=== PATIENT | female | born 1980 | race Caucasian/White ===

== ENCOUNTER 2018-01-01 17:46 | Emergency (ER) | payer BC, OTHER, SELFPAY ==
[2018-01-01 17:50] VITALS: BP 129/92; PULSE 92; RESP 20; TEMP 36.1; O2SAT 98; BMI 28.3
--- NOTE | 2018-01-01 18:04 | ED.ARRPALP ---
HPI - Arrhythmia/Palpitations General Chief Complaint: Arrhythmia/Palpitations Stated Complaint: HEART PALPITATIONS SINCE LAST NIGHT,LOST CONCIOUSN Time Seen by Provider: 01/01/18 18:03 Source: patient Mode of arrival: ambulatory Limitations: no limitations History of Present Illness HPI narrative: 37-year-old otherwise healthy female here for evaluation of palpitations. Patient states that for several years (> 10) she has had palpitations. She states she has worn a Holter monitor for these in the past. She states that she was told that it was a ?arrhythmia? she states she does not take any medications for it. She states that she gets them no more than 1 time a month and sometimes even longer in between the episodes. She states that when she does get them it feels like that her heart is ?skipping beats ?and she feels it in the left side of her neck. Never has any chest pain, never has any shortness of breath, has never passed out. Patient states that yesterday afternoon she had her normal palpitations sensation however it lasted ?longer ?than what it normally does. She states she was driving at the time. She states that yesterday she did get lightheaded, tunnel vision and had the pull the car over. Unknown as to how long the situation lasted. She states that she does not feel that she completely lost consciousness. She denied any chest pain at that time. She was with her at the time. States that when the palpitations resolved all of her symptoms completely resolved. Has not had any of the symptoms today. Did not get evaluated yesterday. Did not come in today because she was at work. At the time my evaluation patient was symptom free. Related Data Previous Rx's Medication Instructions Recorded nitrofurantoin monohyd/m-cryst 100 mg PO Q12H #10 cap 04/28/16 [Macrobid] Review of Systems Constitutional Denies chills, Denies fever(s), Denies headache(s), Denies lethargy and Denies weakness ENT Ears, Nose, Mouth, and Throat: Denies vertigo, Denies dizziness, Denies headache(s) and Denies neck pain Cardiovascular Denies chest pain, Denies syncope, Reports rapid heart rate, Denies edema, Reports irregular heart rhythm, Denies leg edema, Reports lightheadedness, Reports palpitations, Denies dyspnea and Denies dyspnea on exertion Respiratory Denies cough, Denies dyspnea and Denies dyspnea on exertion Gastrointestinal Gastrointestinal: Denies diarrhea, Denies nausea and Denies vomiting Genitourinary Denies dysuria Musculoskeletal Denies abnormal gait, Denies joint swelling, Denies muscle cramps, Denies muscle weakness and Denies neck pain Integumentary/Breasts Denies rash, Denies sores, Denies wounds and Denies jaundice Neurologic Denies abnormal gait, Denies vertigo, Denies dizziness, Denies syncope, Denies headache(s) and Denies weakness Endocrine Reports palpitations Hematologic/Lymphatic Denies easy bruising [facility] Surgical History Status post delivery Social History Smoking Status: Never smoker Exam Initial Vital Signs Initial Vital Signs: Vital Signs Temperature 97.0 F L 01/01/18 17:50 Pulse Rate 92 H 01/01/18 17:50 Respiratory Rate 20 01/01/18 17:50 Blood Pressure 129/92 H 01/01/18 17:50 Pulse Oximetry 98 01/01/18 17:50 Const General: cooperative and well developed Nutritional Appearance: well nourished Orientation: alert, awake, oriented x3 and not confused Chest Chest: normal inspection of the chest Resp Effort & Inspection: normal respiratory effort, able to speak in complete sentences, no respiratory distress and no use of accessory muscles Auscultation: clear to auscultation bilaterally, no rales, no rhonchi and no wheezes Cardio Rate: regular rate Rhythm: regular rhythm Heart Sounds: no click, no gallops, no murmurs and no rubs Pulses: normal peripheral pulses GI Inspection: non-distended Palpation: soft, no hepatosplenomegaly, No guarding, No pulsatile mass and No tender Auscultation: normal bowel sounds Skin General: no rashes or lesions noted, No jaundice and No petechiae Neuro General: alert, awake and oriented x3 Extrem General: full ROM, no clubbing, cyanosis or edema, no pedal edema and no calf tenderness Course Orders Ordered: ED Orders 01/01/18 18:00 Basic Metabolic Panel Stat Complete Blood Count AUTO DIFF Stat Test Serum,Qual Stat 01/01/18 18:03 XR chest 2V Stat Vital Signs - 8 hr 01/01/18 17:50 01/01/18 18:37 Temperature 97.0 F L Pulse Rate 92 H 70 Respiratory Rate 20 Blood Pressure 129/92 H Blood Pressure [Left Arm] 111/80 Pulse Oximetry 98 97 MDM - Arrhythmia/Palpitations Lab Data Attestation: I reviewed the patient's lab results. Result diagrams: 01/01/18 18:00 01/01/18 18:00 Lab Results 01/01/18 01/01/18 01/01/18 Range/Units 18:00 18:00 18:00 WBC 6.4 (4.5-11.0) X10^3/uL RBC 4.22 (4.0-5.2) X10^6/uL Hgb 12.3 (12.0-16.0) g/dL Hct 36.5 (36-46) % MCV 86.4 (80-100) fL MCH 29.2 (26-34) PG MCHC 33.8 (30-36) % RDW 13.2 (11.6-14.8) % Plt Count 396 (150-400) X10^3/uL Neut % (Auto) 50.2 (50-75) % Lymph % (Auto) 34.4 (25-40) % Woodruff % (Auto) 12.9 (3-14) % Eos % (Auto) 2.0 (2-4) % Baso % (Auto) 0.5 (0-2) % Neut # (Auto) 3200 (9023-9381) /uL Sodium 139 (137-145) mmol/L Potassium 3.8 (3.4-5.1) mmol/L Chloride 101 (98-107) mmol/L Carbon Dioxide 25 (22-32) mmol/L BUN 14 (7-17) mg/dL Creatinine 0.60 (0.52-1.04) mg/dL Estimated GFR > 60.0 (>60) mL/min BUN/Creatinine Ratio 23.3 H (6-22) Glucose 89 (70-100) mg/dL Calcium 9.0 (8.4-10.2) mg/dL Serum , Qual Negative (Negative) Imaging Data Chest x-ray: Radiologist's impression: PROCEDURE: XR CHEST 2V INDICATIONS: 37 year-old female with palpitations. TECHNIQUE: 2 views of the chest were acquired. COMPARISON: None. FINDINGS: Surgical changes and devices: None. Lungs and pleura: No pleural effusions or pneumothorax. Lungs are clear. Mediastinum: Mediastinal contours are normal. Heart size is normal. Bones and chest wall: No suspicious bony abnormalities. Soft tissues appear unremarkable. IMPRESSION: No acute cardiopulmonary disease. Dictated by: Fredo Sanchez M.D. on 01/01/2018 at 18:21 ECG Data Attestation: I personally reviewed and interpreted this ECG as follows: Prior ECG tracings: not available for review Interpretation: Sinus rhythm Ventricular rate is 66 OK 114 milliseconds Normal QRS Normal QTC Normal axis No ST T wave changes MDM Narrative Medical decision making narrative: Patient has been asymptomatic for greater than 24 hr. Has had no symptoms while here in the emergency department. Chest x-ray is unremarkable. Labs unremarkable. EKG does have a shortened OK interval but no other signs of [id number]. Had long discussion with the patient regarding her symptoms and return precautions. She does have an appointment with her primary doctor in approximately 1 week. We did discuss that she needs to talk with her primary provider about a Holter monitor. Did inform her that since the event happened yesterday when she was driving and had to pull off the side of road that she probably should not drive until she is cleared by her primary doctor and/or site identification specialist. She expressed understanding. And agreement with plan. Discharge Plan Departure Patient Disposition: Home, Self-Care Clinical Impression: Palpitations Instructions: DI for Palpitations Activity Restrictions/Additional Instructions: Keep your appointment with your primary provider that is coming up in the next couple days. Recommend that you do not drive until your cleared by your primary doctor and/or site identification specialist. Return to the emergency department for any new symptoms, return of the symptoms you had yesterday, chest pain or any other concerning symptoms. Prescriptions: No Action nitrofurantoin monohyd/m-cryst [Macrobid] 100 MG capsule 100 mg PO Q12H Qty: 10 RF: 0
[2018-01-01 18:26] LABS: Add Manual Diff / Slide Review NO; Basophils Percent Auto 0.5 % (0-2); Hematocrit 36.5 % (36-46); Hemoglobin 12.3 g/dL (12.0-16.0); Lymphocytes Percent Auto 34.4 % (25-40); Mean Corpuscular HGB Conc 33.8 % (30-36); Mean Corpuscular Hemoglobin 29.2 PG (26-34); Mean Corpuscular Volume 86.4 fL (80-100); Monocytes Percent Auto 12.9 % (3-14); Neutrophils Absolute Auto 3200 /uL (3000-5900); Neutrophils Percent Auto 50.2 % (50-75); Platelet Count 396 X10^3/uL (150-400); Red Blood Cell Count 4.22 X10^6/uL (4.0-5.2); Red Cell Distribution Width 13.2 % (11.6-14.8); White Blood Cell Count 6.4 X10^3/uL (4.5-11.0)
[2018-01-01 18:30] LABS: BUN Creatinine Ratio 23.3 (6-22); Blood Urea Nitrogen 14 mg/dL (7-17); Carbon Dioxide 25 mmol/L (22-32); Chloride 101 mmol/L (98-107); Estimated Glomerular Filt Rate > 60.0 mL/min (>60); Glucose 89 mg/dL (70-100); HEMOLYSIS < 15 (0-50); Potassium 3.8 mmol/L (3.4-5.1); Sodium 139 mmol/L (137-145)
--- NOTE | 2018-01-01 18:36 | PC.NURSE ---
patient states she has had palpitations and similar symptoms her entire adult life. states she feels fine now. states symptoms are often associated with caffeine and stress.
[2018-01-01 18:37] VITALS: BP 111/80; PULSE 70; O2SAT 97
[2018-01-01 18:44] LABS: Pregnancy Test Serum,Qual Negative (Negative)
[2018-01-01 19:03] VITALS: BP 109/83; PULSE 75; O2SAT 99
== END 2018-01-01 19:19 | disposition home or self-care (01) ==
PROVIDERS: Emergency Provider Emergency Medicine; PCP Family Medicine
DX: R00.2 Palpitations (principal)
CPT/HCPCS: 36591; 71046; 80048; 84703; 85025; 93005; 93041; 99283; 99285

== ENCOUNTER → 2022-02-10 14:09 | Outpatient (CLI) | payer OTHER, SELFPAY ==
[2022-02-10 17:48] LABS: Urine N gonorrhoeae NOT DETECTED
[2022-02-10 18:08] LABS: Urine Chlamydia NOT DETECTED
== END ==
PROVIDERS: PCP Family Medicine; Visit Provider Physician Assistant
DX: N89.8 Other specified noninflammatory disorders of vagina (principal)
CPT/HCPCS: 87210; 87491; 87591

== ENCOUNTER → 2022-03-18 10:06 | Outpatient (CLI) | payer OTHER, SELFPAY ==
[2022-03-18 11:52] LABS: Alanine Aminotransferase 24 IU/L (<35); Albumin 4.1 g/dL (3.5-5.0); Albumin Globulin Ratio 1.3 (1.0-2.8); Alkaline Phosphatase 40 U/L (38-126); Aspartate Aminotransferase 23 IU/L (14-36); BUN Creatinine Ratio 22.5 (6-22); Bilirubin Total 0.7 mg/dL (0.2-1.3); Blood Urea Nitrogen 16 mg/dL (7-17); Calcium 8.6 mg/dL (8.4-10.2); Carbon Dioxide 26 mmol/L (22-32); Chloride 106 mmol/L (98-107); Cholesterol 199 mg/dL (140-199); Estimated Glomerular Filt Rate > 60 mL/min (>60); Globulin 3.1 g/dL (1.7-4.1); Glucose 92 mg/dL (70-100); HDL Cholesterol 53 mg/dL (40-60); HEMOLYSIS < 15 (0-50); LDL Cholesterol Calculated 121 mg/dL (<100); Potassium 4.8 mmol/L (3.4-5.1); Sodium 137 mmol/L (137-145); Total Protein 7.2 g/dL (6.3-8.2); Triglycerides 126 mg/dL (35-150)
[2022-03-18 12:10] LABS: Free T3, Triiodothyronine Free 3.22 pg/mL (2.77-5.27)
[2022-03-18 12:24] LABS: Thyroid Stimulating Hormone 0.489 uIU/mL (0.47-4.68)
[2022-03-18 15:03] LABS: Free T4, Direct Thyroxine 1.16 ng/dL (0.78-2.19)
== END ==
PROVIDERS: PCP Family Medicine; Referring Provider Family Medicine; Visit Provider Family Medicine
DX: R53.83 Other fatigue (principal); Z76.89 Persons encountering health services in other specified circumstances; Z82.49 Family history of ischemic heart disease and other diseases of the circulatory system
CPT/HCPCS: 36415; 80053; 80061; 84439; 84443; 84481

== ENCOUNTER → 2022-04-08 07:24 | Outpatient (CLI) | payer OTHER, SELFPAY | PROVIDERS: PCP Family Medicine; Visit Provider Nurse Practitioner Family | DX: N39.0 Urinary tract infection, site not specified (principal) | CPT/HCPCS: 87077; 87086; 87186 ==